=== PATIENT | female | born 1980 | race Caucasian/White ===

== ENCOUNTER 2021-09-20 18:35 | Emergency (ER) | payer OTHER ==
[~2021-09-20 18:35] MED LIST: DELSYM30 MG/5 ML PO; FLONASE 0.05% N16 GM; PREDNISONE20 MG PO; ROBITUSSIN AC480 ML PO; VIBRAMYCIN100 MG PO; ZYRTEC10 MG PO
[2021-09-20] MEDS ORDERED: DELSYM30 MG/5 ML PO (21:31)
[2021-09-20] MEDS ORDERED: ZYRTEC10 MG PO (21:31)
[2021-09-20] MEDS ORDERED: FLONASE ALLER15.8 ML (21:31)
== END 2021-09-20 22:05 | disposition home or self-care (01) ==
LOC: ER1 18:35
DX: J02.9 Acute pharyngitis, unspecified (principal); R09.81 Nasal congestion; R51.9 Headache, unspecified; Z20.822 Contact with and (suspected) exposure to COVID-19
CPT/HCPCS: 87081; 87880; 99284; U0002

== ENCOUNTER 2022-03-20 11:25 | Emergency (ER) | payer OTHER ==
[~2022-03-20 11:25] MED LIST changes: +FLONASE ALLER15.8 ML
[2022-03-20 11:54] LABS: HEMOGLOBIN 15.6 gm/dl (12.3-15.3); RED BLOOD COUNT 4.52 M/UL (4.00-5.10); WHITE BLOOD COUNT 7.6 K/UL (4.5-11.0)
[2022-03-20 12:18] LABS: BUN/CREATININE RATIO 12 (0-10)
== END 2022-03-20 16:50 | disposition home or self-care (01) ==
LOC: ER1 11:25
PROVIDERS: Emergency Medicine
DX: N83.8 Other noninflammatory disorders of ovary, fallopian tube and broad ligament (principal); I10 Essential (primary) hypertension; F17.200 Nicotine dependence, unspecified, uncomplicated
CPT/HCPCS: 76830; 80053; 81001; 83690; 84703; 85025; 96374; 96375; 99284; J2270; J2405; Q9967

== ENCOUNTER → 2022-03-30 | Outpatient (CLI) | payer OTHER ==
[~2022-03-30] MED LIST changes: +BUPRENORPHINE-1 EACH SL
[2022-03-30 11:12] LABS: HEMOGLOBIN 14.4 gm/dl (12.3-15.3); RED BLOOD COUNT 4.18 M/UL (4.00-5.10)
== END ==
LOC: OPSV2 10:00
PROVIDERS: Obstetrics & Gynecology
DX: Z01.818 Encounter for other preprocedural examination (principal); R10.2 Pelvic and perineal pain
CPT/HCPCS: 36415; 81001; 85025; 93005

== ENCOUNTER → 2022-04-07 | Day surgery (SDC) | payer OTHER ==
[~2022-04-07] MED LIST changes: +COLACE100 MG PO; +IBUPROFEN600 MG PO; +PERCOCET 5-3251 EACH PO; +TYLENOL 8 HOUR650 MG PO
== END | disposition home or self-care (01) ==
LOC: OR 05:26
DX: N83.11 Corpus luteum cyst of right ovary (principal); N73.6 Female pelvic peritoneal adhesions (postinfective); N83.202 Unspecified ovarian cyst, left side; I10 Essential (primary) hypertension; J45.909 Unspecified asthma, uncomplicated; Z98.51 Tubal ligation status; Z20.822 Contact with and (suspected) exposure to COVID-19; Z88.0 Allergy status to penicillin; Z72.0 Tobacco use
CPT/HCPCS: J0690; J1885; J2001; J2250; J2370; J2704; J2795; J3010; J7120

== ENCOUNTER 2022-06-15 10:17 | Emergency (ER) | payer OTHER ==
[2022-06-15 12:16] LABS: HEMOGLOBIN 14.5 gm/dl (12.3-15.3); RED BLOOD COUNT 4.2 M/UL (4.00-5.10); WHITE BLOOD COUNT 7.5 K/UL (4.5-11.0)
[2022-06-15 12:39] LABS: BUN/CREATININE RATIO 12 (0-10)
[2022-06-15] MEDS ORDERED: PROTONIX40 MG PO (14:17)
[2022-06-15] MEDS ORDERED: ZOFRAN ODT 4 MG4 MG PO (14:18)
== END 2022-06-15 14:49 | disposition home or self-care (01) ==
LOC: ER1 10:17
PROVIDERS: Physician Assistant
DX: R10.9 Unspecified abdominal pain (principal); R11.0 Nausea; R10.811 Right upper quadrant abdominal tenderness; R10.813 Right lower quadrant abdominal tenderness; F17.200 Nicotine dependence, unspecified, uncomplicated
CPT/HCPCS: 80053; 81001; 83690; 85025; 93005; 96374; 96375; 99284; C9113; J1885; J2270; J2405; Q9967